=== PATIENT | female | born 1995 | race Caucasian/White ===

== ENCOUNTER 2019-12-29 07:18 | Inpatient (IN) | payer OTHER ==
[~2019-12-29] VITALS: Ht 157.5 cm; Wt 61.2 kg
--- NOTE | 2019-12-29 16:55 | PR ---
[facility] [address] [facility] [place] [address] Signed PP Progress Notes Datetime Report Generated by CPN: 12/29/2019 16:55 SUBJECTIVE: [id number] Pain: Within Normal Limits Pain Comments: feeling woozy from delivery and meds Vital Signs: [id number] Vital Signs: Reviewed Notable Details: severe HTN EXAM: Ongoing IMPRESSION/PLAN/PROCEDURES: [id number] Impression: Induced Hypertension Other Plans: IV labetalol, IV mag sulfate Progress Notes: BPs are very elevated and feel she needs to have IV labetalol and to start on IV mag sulfate. Signing Physician: Gissell Davison MD Copies: ~ *Electronically Signed* 12/29/19 1652 GISSELL DAVISON MD PATIENT NAME: KAEL MCLEOD PROGRESS NOTE DATE OF : [birth year] PHYSICIAN: GISSELL DAVISON MD RPT #: [id number] REPORT IS CONFIDENTIAL AND NOT TO BE RELEASED WITHOUT AUTHORIZATION
--- NOTE | 2019-12-30 08:36 | PR ---
[facility] [address] [facility] [place], [place] [address] Signed PP Progress Notes Datetime Report Generated by CPMarin: 12/30/2019 08:36 SUBJECTIVE: [id number] Pain: Within Normal Limits Pain Comments: feeling woozy from delivery and meds Nausea/Vomiting: Denies Vital Signs: [id number] Vital Signs: Reviewed Notable Details: HTN but not severe EXAM: Ongoing Cardiovascular: Not Done Respiratory: Not Done Abdomen/Uterus: Abnormal Lochia: Normal Vulva/Perineum: Abnormal Breasts: Not Done CVA Tenderness: Not Done Extremities: Normal Incision: Not Applicable Progress: Abnormal Exam Comments: Fundus firm, NT @ U-2. Vulva very edematous H/H 11.4/34.1, plat 248k UA 6 Mag 4.9 IMPRESSION/PLAN/PROCEDURES: [id number] Impression: Normal Progression; Induced Hypertension Other Impression: very edematous vulva Other Plans: stop mag, ambulate, avoid sitting Progress Notes: Doing much better BP alicia. Will stop the mag and increase ambulation. Signing Physician: Gissell Davison MD Copies: ~ *Electronically Signed* 12/30/19 0836 GISSELL DAVISON MD PATIENT NAME: KAEL MCLEOD PROGRESS NOTE DATE OF : 96 PHYSICIAN: GISSELL DAVISON MD RPT #: [id number] REPORT IS CONFIDENTIAL AND NOT TO BE RELEASED WITHOUT AUTHORIZATION
--- NOTE | 2019-12-31 08:05 | PR ---
[facility] [address] [facility] [place], [place] [address] Signed PP Progress Notes Datetime Report Generated by CPN: 12/31/2019 08:04 SUBJECTIVE: [id number] Pain: Within Normal Limits Pain Comments: feeling woozy from delivery and meds Nausea/Vomiting: Denies Vital Signs: [id number] Vital Signs: Reviewed Notable Details: HTN overall improved but persistent EXAM: Ongoing Cardiovascular: Not Done Respiratory: Not Done Abdomen/Uterus: Abnormal Lochia: Normal Vulva/Perineum: Normal Breasts: Not Done CVA Tenderness: Not Done Extremities: Normal Incision: Not Applicable Progress: Abnormal Exam Comments: Fundus firm, NT @ U-2. Vulva with minimal edema. IMPRESSION/PLAN/PROCEDURES: [id number] Impression: Normal Progression; Induced Hypertension Other Impression: very edematous vulva Plan: Discharge Other Plans: stop mag, ambulate, avoid sitting Procedures: None Progress Notes: Overall improved though BP still not back to normal. I think she is stable for D/C with short f/u. Signing Physician: Gissell Davison MD Copies: ~ *Electronically Signed* 12/31/19 0804 GISSELL DAVISON MD PATIENT NAME: KAEL MCLEOD PROGRESS NOTE DATE OF : 96 PHYSICIAN: GISSELL DAVISON MD RPT #: [id number] REPORT IS CONFIDENTIAL AND NOT TO BE RELEASED WITHOUT AUTHORIZATION
== END 2019-12-31 10:40 | disposition home or self-care (01) | DRG 807 ==
LOC: FBCO 07:18 → FBC 07:30 → FBCO 01-06 09:31
PROVIDERS: ADMIT Obstetrics & Gynecology; ATTEND Obstetrics & Gynecology
PROC: 10E0XZZ Delivery of Products of Conception, External Approach (ICD-10-PCS; principal; 2019-12-29)
PROC: 0KQM0ZZ Repair Perineum Muscle, Open Approach (ICD-10-PCS; 2019-12-29)
DX: O14.14 Severe pre-eclampsia complicating childbirth (principal); Z37.0 Single live birth; Z3A.38 38 weeks gestation of pregnancy; O42.92 Full-term premature rupture of membranes, unspecified as to length of time between rupture and onset of labor; O69.81X0 Labor and delivery complicated by cord around neck, without compression, not applicable or unspecified; O77.0 Labor and delivery complicated by meconium in amniotic fluid; O70.1 Second degree perineal laceration during delivery; Z88.0 Allergy status to penicillin
CPT/HCPCS: 36415; 82565; 82570; 83735; 84156; 84450; 84520; 84550; 85025; 85027; A9270; J2590; J3475

== ENCOUNTER 2022-04-12 06:43 | Inpatient (IN) | payer OTHER ==
[~2022-04-12] VITALS: Ht 157.5 cm; Wt 64.9 kg
--- NOTE | 2022-04-12 08:30 | PR ---
[facility] [address] [facility] [place], [place] [address] Signed Progress Notes IP Datetime Report Generated by CPN: 04/12/2022 08:30 PROGRESS NOTES: [id number] Impression: Normal Progression of Labor; Reassuring Heart Rate Procedures: Scalp Electrode; Sterile Vag Exam Plan: Continue Present Management VITAL SIGNS: [id number] Vital Signs: Reviewed; Within Normal Limits EXAM: [id number] Dilatation: 3.0 Effacement: 75 Station: -3 Contractions: q 2 to 3 min MEMBRANES: [id number] Amniotic Fluid Color: Clear Comments: Some progress seen. AROM of forebag with FSE with large amount of clear fluid seen. Will continue. FETUS A: [id number] FHR Baseline: 145 Variability: Moderate 6-25bpm Accelerations: 15X15 Decelerations: Variable FHR Category: Category II Presentation: Vertex Comments on Fetus A: overall reassuring FETUS B: [id number] Signing Physician: Gissell Davison MD Copies: ~ *Electronically Signed* 04/12/22829 GISSELL DAVISON MD PATIENT NAME: KAEL MCLEOD PROGRESS NOTE DATE OF : [birth year] PHYSICIAN: GISSELL DAVISON MD RPT #: [id number] REPORT IS CONFIDENTIAL AND NOT TO BE RELEASED WITHOUT AUTHORIZATION
--- NOTE | 2022-04-12 08:54 | NUR ---
Swab collected sent to the lab
--- NOTE | 2022-04-13 09:39 | PR ---
[facility] [address] [facility] [place], [place] [address] Signed PP Progress Notes Datetime Report Generated by CPN: 04/13/2022 09:39 SUBJECTIVE: [id number] Pain: Within Normal Limits Vital Signs: [id number] Vital Signs: Reviewed; Within Normal Limits Cardiovascular: Not Done Respiratory: Not Done Abdomen/Uterus: Abnormal Lochia: Normal Vulva/Perineum: Not Done Breasts: Not Done CVA Tenderness: Not Done Extremities: Normal Incision: Not Applicable Progress: Normal Exam Comments: Fundus firm, NT @ U-2 11.6/33.9, WBC 8.4, plat 220k IMPRESSION/PLAN/PROCEDURES: [id number] Impression: Normal Progression Plan: Discharge Procedures: None Progress Notes: Doing well. She desires discharge today. Signing Physician: Gissell Davison MD Copies: ~ *Electronically Signed* 04/13/2239 GISSELL DAVISON MD PATIENT NAME: KAEL MCLEOD PROGRESS NOTE DATE OF : 96 PHYSICIAN: GISSELL DAVISON MD RPT #: [id number] REPORT IS CONFIDENTIAL AND NOT TO BE RELEASED WITHOUT AUTHORIZATION
== END 2022-04-13 18:12 | disposition home or self-care (01) | DRG 807 ==
LOC: FBCO 06:43 → FBC 06:50
PROVIDERS: ADMIT Obstetrics & Gynecology; ATTEND Obstetrics & Gynecology
PROC: 10E0XZZ Delivery of Products of Conception, External Approach (ICD-10-PCS; principal; 2022-04-12)
PROC: 10907ZC Drainage of Amniotic Fluid, Therapeutic from Products of Conception, Via Natural or Artificial Opening (ICD-10-PCS; 2022-04-12)
PROC: 0KQM0ZZ Repair Perineum Muscle, Open Approach (ICD-10-PCS; 2022-04-12)
PROC: 0UQMXZZ Repair Vulva, External Approach (ICD-10-PCS; 2022-04-12)
DX: O42.02 Full-term premature rupture of membranes, onset of labor within 24 hours of rupture (principal); Z37.0 Single live birth; O70.1 Second degree perineal laceration during delivery; Z67.10 Type A blood, Rh positive; Z20.822 Contact with and (suspected) exposure to COVID-19; Z3A.37 37 weeks gestation of pregnancy; O99.284 Endocrine, nutritional and metabolic diseases complicating childbirth; E03.9 Hypothyroidism, unspecified; Z79.890 Hormone replacement therapy
CPT/HCPCS: 36415; 85027; 86850; 86900; 86901; 87502; A9270; C9803; J2590; U0003